=== PATIENT | male | born 1970 | race Caucasian/White ===

== ENCOUNTER 2020-04-22 13:25 | Inpatient (IN) | payer OTHER ==
[~2020-04-22] VITALS: Ht 175.3 cm; Wt 115.5 kg
[2020-05-09] VITALS (12 sets, daily range): BP systolic 112–136; BP diastolic 68–86; PULSE 89–103; TEMP 98.5–99.3
[2020-05-09] MEDS ORDERED: PROZAC 20MG20 MG PO (06:48)
[2020-05-09] MEDS ORDERED: ALDACTONE50 MG PO (06:48)
[2020-05-09] MEDS ORDERED: ESTRACE 1MG1 MG/TAB PO (06:49)
[2020-05-09] MEDS ORDERED: NEURONTIN300 MG/CAP PO (06:50)
[2020-05-09] MEDS ORDERED: NORCO 325 MG-101 TAB PO (06:51)
[2020-05-09] MEDS ORDERED: KERATIN PO (06:52)
[2020-05-09] MEDS ORDERED: [UNRECOGNIZED DRUG - OTHER] PO (06:58)
[2020-05-09] MEDS ORDERED: FLEXERIL 1010 MG/TAB PO (12:37)
--- NOTE | 2020-05-09 12:45 | NUR ---
Patient post op to room 323. Vss on O2. Robotic lap site edges well approximated. FRANCHESKA drain to compression with minimal output. Barron to DD with tea output. Tolerated clears, minimal complaints of pain
--- NOTE | 2020-05-09 19:14 | NUR ---
Patient resting in bed. No complaints of pain from surgery but a complaint of a sensitive spot on head. Patient has had a lot of clear fluids including ice chips, jello, and broth. Patient tolerating fluids well.
--- NOTE | 2020-05-09 20:20 | NUR ---
Pt. sitting up in bed at this time. Pt. is A&OX3, assessment complete. IV to lt. wrist patetn. 5 abd. lap sites, well approximated, FRANCHESKA noted with bloody drainage. Pt. denies pain or other needs, call light within reach.
[2020-05-10 00:10] VITALS: BP 119/64; PULSE 95; TEMP 99.2
[2020-05-10 03:29] VITALS: BP 124/65; PULSE 90; TEMP 99
[2020-05-10 05:57] LABS: HEMOGLOBIN 12.6 g/dl (13.5-18.0)
[2020-05-10 06:04] LABS: HEMATOCRIT 35.9 % (42.0-52.0)
[2020-05-10 06:08] LABS: CALCIUM 8.8 mg/dL (8.4-10.2); POTASSIUM 4.6 mmol/L (3.4-5.0)
[2020-05-10 08:15] VITALS: BP 126/72; PULSE 90; TEMP 98.5
[2020-05-10 11:22] VITALS: BP 140/81; PULSE 79; TEMP 97.8
--- NOTE | 2020-05-10 13:17 | NUR ---
SW met with patient to complete intake. Patient states that he lives in [facility] with his Marlena Castro [phone]. Patient states that he does not utilize DME and he is independent with ADL's. Patient provides that [facility] P[facility] at [facility], [facility], and that he is able to afford his medications. Patient states that he has previously appointed his as his DPO[facility], and states that the documenation is at his home SW asked patient if he is able to obtain document so SW can make a copy. Patient stated he will speak to his . Patient states that he plans to go back to his home upon [place] and states that he currently does not have any home health services and provides that he is unsure if he will need services upon DC. SW provided patient with information into SW continuing to follow and will assist with services that may be needed upon DC. SW will continue to follow.
[2020-05-10 16:03] VITALS: BP 134/71; PULSE 74; TEMP 98.4
--- NOTE | 2020-05-10 18:30 | NUR ---
Patient has been doing well today. Walked in the hallways, tolerating diet without nausea. Pain well controlled with scheduled pain medications. Urine output is clear yellow. FRANCHESKA drain output is low to moderate. Patient understands might discharge tomorrow. Discussed leg bag teaching but patient stated does not plan to change bag while at home. Patient had some loose stools today. No other changes at this time. Call light within reach.
--- NOTE | 2020-05-10 19:45 | NUR ---
Pt. sitting up in bed at this time. Pt. is A&OX3, assessment complete. INT to lt. wrist patent. Abd. lap sites x5, well approximated. FRANCHESKA drain to lt. abd, drainage noted to dressing, minimal bloody drainage noted. Pt. reports pain at a 3 on pain scale. Pt. wishes to ambulate halls this evening. Assisted with tying gown and pt. able to ambulate halls independently. Pt. denies further needs, call light within reach.
[2020-05-10 19:55] VITALS: BP 125/77; PULSE 72; TEMP 98.8
[2020-05-11 04:09] VITALS: BP 113/57; PULSE 70; TEMP 97.6
[2020-05-11 07:29] VITALS: BP 124/61; PULSE 67; TEMP 98.2
--- NOTE | 2020-05-11 10:14 | NUR ---
Patient up walking the halls. Patient tolerating food and liquids well. Patient has no complaints of pain or any concerns. Patient requests be there for dischagre teaching.
--- NOTE | 2020-05-11 11:18 | NUR ---
Patient educated on dishcarge instructions and bartholomew care. Patient refused leg bag stating she was not going to leave the house. Went over diet and activity restrictions. Patient demonstrated emptying the bartholomew and verbalized understanding for catheter care. at bedside during teaching. Bartholomew care was provided and they were sent home with alcohol wipes and catheter care wipes. Patient did not have any concerns. Patient to call tomorrow for follow up appointment.
== END 2020-05-11 11:30 | disposition home or self-care (01) | DRG 708 ==
LOC: INPTSU 05-09 05:18 → SURG 05-09 07:30
PROVIDERS: ADMIT Urology
PROC: 07BC4ZZ Excision of Pelvis Lymphatic, Percutaneous Endoscopic Approach (ICD-10-PCS; 2020-05-09)
PROC: 8E0W4CZ Robotic Assisted Procedure of Trunk Region, Percutaneous Endoscopic Approach (ICD-10-PCS; 2020-05-09)
PROC: 0VT04ZZ Resection of Prostate, Percutaneous Endoscopic Approach (ICD-10-PCS; principal; 2020-05-09 07:30)
DX: C61 Malignant neoplasm of prostate (principal); E78.5 Hyperlipidemia, unspecified; F43.10 Post-traumatic stress disorder, unspecified; Z85.038 Personal history of other malignant neoplasm of large intestine
CPT/HCPCS: A4314; A9284; J0690; J1100; J1885; J2250; J2405; J2704; J3010; J7120

== ENCOUNTER → 2021-03-10 | Outpatient (CLI) | payer OTHER ==
[~2021-03-10] MED LIST: ALDACTONE50 MG PO; ESTRACE 1MG1 MG/TAB PO; FLEXERIL 1010 MG/TAB PO; KERATIN PO; NEURONTIN300 MG/CAP PO; NORCO 325 MG-101 TAB PO; PROZAC 20MG20 MG PO; [UNRECOGNIZED DRUG - OTHER] PO
== END ==
LOC: MC.RAD 13:52
DX: N63.11 Unspecified lump in the right breast, upper outer quadrant (principal)